=== PATIENT | male | born 1965 | race Caucasian/White ===

== ENCOUNTER 2017-03-02 08:22 | Day surgery (SDC) | payer BC ==
[~2017-03-02 08:22] MED LIST: Midazolam 1 MG/ML 2 ML SDV ONE; Propofol 200 MG/20 ML SDV ONE; fentaNYL 100 MCG/2 ML SDV ONE
[2017-03-02] MEDS ORDERED: Lactated Ringers 1,000 ML IV SCH (09:00)
[2017-03-02 12:06] VITALS: BP 132/73
--- NOTE | 2017-03-02 14:07 | OR ---
DATE OF PROCEDURE: 03/02/2017 PREOPERATIVE DIAGNOSIS: Colon cancer screening. POSTOPERATIVE DIAGNOSIS: Diverticulosis, small rectal polyp. PROCEDURE: Colonoscopy to the cecum. SURGEON: Rolando Hoyt MD. ANESTHESIA: IV anesthesia with monitored anesthesia care. INDICATION: This 51-year-old white male is referred for a colonoscopy for colon cancer screening. He has never had a colonoscopic exam. I counseled him for the procedure including risks and alternatives, and he gave his informed consent to proceed. DESCRIPTION OF PROCEDURE: The patient was placed in the left lateral decubitus position. IV anesthesia was administered by the Anesthesia Service. Time-out was held. A rectal exam was performed, which was unremarkable. The flexible video Olympus colonoscope was introduced through his anus, up his rectum, and out his colon all way to the cecum. Once the cecum was reached, the scope was slowly withdrawn, examining the mucosa throughout. No mucosal abnormalities were noted until we reached the sigmoid colon. Here, we saw very few small diverticula. The scope was brought back into the rectum, where a small polyp was seen and removed with the biopsy forceps. We attempted to retroflex the scope, I would not do so. The scope was then removed. He tolerated the procedure well. Rolando Hoyt MD /[id number]
== END 2017-03-02 12:30 | disposition home or self-care (01) ==
LOC: JP.SDS 08:22
PROVIDERS: ATTEND Surgery
DX: Z12.11 Encounter for screening for malignant neoplasm of colon (principal); D12.8 Benign neoplasm of rectum; K57.30 Diverticulosis of large intestine without perforation or abscess without bleeding
CPT/HCPCS: 45380; J2250; J2704; J3010; J7120; 88305

== ENCOUNTER 2020-03-03 06:21 | Day surgery (SDC) | payer BC ==
[2020-03-03] MEDS ORDERED: Sodium Chloride 0.9% 1,000 ML IV SCH (07:00)
[2020-03-03] MEDS ORDERED: Midazolam 1 MG/ML 2 ML SDV ONE (07:19)
[2020-03-03] MEDS ORDERED: Propofol 200 MG/20 ML SDV ONE (07:19)
[2020-03-03] MEDS ORDERED: fentaNYL 100 MCG/2 ML SDV ONE (07:19)
[2020-03-03 09:44] VITALS: BP 112/71; PULSE 65
--- NOTE | 2020-03-03 14:10 | OR ---
DATE OF PROCEDURE: 03/03/2020 SURGEON: Frederick Nance MD PROCEDURE: Colonoscopy. FINDINGS: Descending colon polyp, approximately 5 mm, completely removed using cold biopsy forceps. COMPLICATIONS: None. INSURANCE ATTORNEY: None. ANESTHESIA: MAC. PREOPERATIVE DIAGNOSIS: Screening colonoscopy. POSTOPERATIVE DIAGNOSIS: Screening colonoscopy. RISKS: Risks, benefits, alternatives, and limitations including, but not limited to, infection, bleeding, and perforation were explained to the patient who wished to proceed. PROCEDURE IN DETAIL: The patient was placed in left lateral decubitus position. Digital rectal exam was performed without abnormality. Scope was introduced and advanced atraumatically to the ileocecal valve. Photo was taken. Scope was brought back to the ascending, transverse, descending colon, and retroflexed. No evidence of old or new blood. No masses. The polyp was identified and was completely removed. No abnormalities on retroflexion. The patient tolerated the procedure well. Frederick Nance MD /[id number]
== END 2020-03-03 09:47 | disposition home or self-care (01) ==
LOC: JP.SDS 06:21
PROVIDERS: ATTEND Surgery
DX: Z12.11 Encounter for screening for malignant neoplasm of colon (principal); D12.4 Benign neoplasm of descending colon
CPT/HCPCS: 45380; J2250; J2704; J3010; J7030; 88305

== ENCOUNTER 2021-05-27 05:59 | Day surgery (SDC) | payer BC ==
[2021-05-27] MEDS ORDERED: Nozin Nasal Sanitizer NASBOTH ONE (06:30)
[2021-05-27] MEDS ORDERED: Lactated Ringers 1,000 ML IV SCH (06:30)
[2021-05-27] MEDS ORDERED: ceFAZolin 1 GM in Premix Bag 1 BAG IV ONE (07:00)
[2021-05-27] MEDS ORDERED: Bupivacaine 0.5% 30 ML SDV ONE (07:21)
[2021-05-27] MEDS ORDERED: Dexamethasone 4 MG/ML SDV ONE (07:34)
[2021-05-27] MEDS ORDERED: Neostigmine Methylsulfate 1 MG/ML 5 ML Syringe ONE (07:34)
[2021-05-27] MEDS ORDERED: Ondansetron 4 MG/2 ML SDV ONE (07:34)
[2021-05-27] MEDS ORDERED: Glycopyrrolate 0.2 MG/ML 5 ML MDV ONE (07:34)
[2021-05-27] MEDS ORDERED: Propofol 200 MG/20 ML SDV ONE (07:34)
[2021-05-27] MEDS ORDERED: fentaNYL 250 MCG/5 ML SDV ONE (07:34)
[2021-05-27] MEDS ORDERED: Rocuronium 50 MG/5 ML Vial ONE (07:34)
[2021-05-27] MEDS ORDERED: Succinylcholine 200 MG/10 ML MDV ONE (07:34)
[2021-05-27 09:52] VITALS: BP 156/104; PULSE 66
--- NOTE | 2021-05-27 22:26 | OR ---
DATE OF PROCEDURE: 05/27/2021 SURGEON: Gerardo Torres MD PREOPERATIVE DIAGNOSIS: Medial meniscus tear, right knee. POSTOPERATIVE DIAGNOSES: 1. Medial meniscus tear, right knee, midbody and posterior horn. 2. Chondromalacia of patellofemoral joint, grade 3 and 4. PROCEDURE: Arthroscopy, right knee, with partial medial meniscectomy. ANESTHESIA: General. INDICATIONS: Ari is a 55-year-old gentleman with a history of bilateral knee pain with the chronic left knee pain and more acute right medial knee pain. MRI confirms medial meniscus tear with intact articular cartilage in the medial compartment. Does have a known chondromalacia and early degenerative changes of the patellofemoral joint, but this is minimally symptomatic. Now presents for arthroscopic treatment of the medial meniscus tear. Risks, benefits, potential complications of the procedure were discussed. DESCRIPTION OF PROCEDURE: After adequate anesthesia was obtained, patient placed supine with a tourniquet about the right upper thigh. Right leg was prepped and draped in a sterile fashion. Leg was exsanguinated, tourniquet inflated to 300 mmHg pressure. Standard inferior, medial, and lateral portals were established. Patellofemoral joint was inspected and this revealed grade 3 changes over the majority of the patella with areas of grade 3 and early grade 4 changes in the trochlea, particularly more over the lateral facet. No significant loose flaps were identified. Moving the scope into the medial compartment, a tear of the midbody with a small flap on the superior surface, which could be displaced, was identified. Using a shaver, this flap was debrided. Further evaluation revealed a horizontal cleavage tear into the posterior horn. Using combination of a punch basket and shaver, the smaller inferior leaf of the cleavage tear was debrided back to stable tissue and all loose fragments were removed. This was further probed and remaining meniscus was found to be intact. Articular surface of the femoral condyle and tibial plateau was intact. ACL and PCL were normal in appearance. Lateral compartment showed an intact lateral meniscus. Some mild grade 2 changes over the femoral condyle with what appeared to be a very slight amount of chondrocalcinosis present in one spot. No loose bodies or other abnormalities were identified. Patellofemoral joint was again inspected. Knee was drained, scope was withdrawn. Port sites were closed with 3-0 Monocryl and Steri-Strips. Port sites and knee were infiltrated with 0.5% Marcaine and a sterile dressing was applied. Patient tolerated the procedure very well. There were no complications. Taken from the operating room in stable condition. Gerardo Torres MD /[id number]
== END 2021-05-27 10:00 | disposition home or self-care (01) ==
LOC: JP.SDS 05:59
PROVIDERS: ATTEND Specialist
DX: S83.241A Other tear of medial meniscus, current injury, right knee, initial encounter (principal); G89.29 Other chronic pain; Z98.890 Other specified postprocedural states; M17.11 Unilateral primary osteoarthritis, right knee; M94.261 Chondromalacia, right knee
CPT/HCPCS: 29881; 36415; 80053; 85027; A9270; J0330; J0690; J1100; J2405; J2704; J2710; J3010; J3490; J7120

== ENCOUNTER 2022-11-12 05:59 | Day surgery (SDC) | payer BC, OTHER ==
[2022-11-12] MEDS: Lactated Ringers 1,000 ML IV SCH ×2 (06:28→10:45)
[2022-11-12] MEDS ORDERED: Acetaminophen 500 MG Tab PO ONE (06:30)
[2022-11-12] MEDS ORDERED: Bupivacaine 0.5%/EPINEPHrine 1:200,000 50 ML MDV ONE (06:39)
[2022-11-12] MEDS ORDERED: Albuterol/Ipratropium 3.0-0.5 MG/3 ML Neb Soln NEB ONE (06:59)
[2022-11-12] MEDS ORDERED: Dexamethasone 4 MG/ML SDV ONE (07:21)
[2022-11-12] MEDS ORDERED: Neostigmine Methylsulfate 1 MG/ML 5 ML Syringe ONE (07:21)
[2022-11-12] MEDS ORDERED: Succinylcholine 200 MG/10 ML MDV ONE (07:21)
[2022-11-12] MEDS ORDERED: Rocuronium 50 MG/5 ML Vial ONE (07:21)
[2022-11-12] MEDS ORDERED: Propofol 200 MG/20 ML SDV ONE (07:21)
[2022-11-12] MEDS ORDERED: Glycopyrrolate 0.2 MG/ML 5 ML MDV ONE (07:21)
[2022-11-12] MEDS ORDERED: Ondansetron 4 MG/2 ML SDV ONE (07:21)
[2022-11-12] MEDS ORDERED: fentaNYL 100 MCG/2 ML SDV ONE (07:23)
[2022-11-12] MEDS ORDERED: fentaNYL 250 MCG/5 ML SDV ONE ×2 (07:23→08:25)
[2022-11-12] MEDS ORDERED: ceFAZolin 2 GM in Premix Bag 1 BAG IV ONE (07:30)
[2022-11-12] MEDS ORDERED: Ketorolac 30 MG/ML SDV ONE (08:41)
[2022-11-12] MEDS ORDERED: Lactated Ringers 1,000 ML ONE (09:17)
[2022-11-12] MEDS ORDERED: Ondansetron 4 MG/2 ML SDV IVPUSH PRN (12:50)
[2022-11-12] MEDS ORDERED: Acetaminophen 1,000 MG in Premix Bag 1 BAG IV ONE (13:00)
[2022-11-12] MEDS ORDERED: Tamsulosin 0.4 MG Cap.ER PO ONE (15:00)
[2022-11-12 15:35] VITALS: BP 133/88; PULSE 81
== END 2022-11-12 15:30 | disposition home or self-care (01) ==
LOC: JP.SDS 05:59
PROVIDERS: ATTEND Student in an Organized Health Care Education/Training Program
DX: K40.90 Unilateral inguinal hernia, without obstruction or gangrene, not specified as recurrent (principal); E55.9 Vitamin D deficiency, unspecified; F17.200 Nicotine dependence, unspecified, uncomplicated
CPT/HCPCS: 36415; 49650; 85027; 93005; 94640; A9270; C1781; J0131; J0330; J0690; J1100; J1885; J2405; J2704; J2710; J3010; J3490; J7120; J7620